=== PATIENT | male | born 1950 | race Caucasian/White ===

== ENCOUNTER 2023-08-14 11:18 | Outpatient (RCR) | payer MEDICARE, OTHER, SELFPAY | END 2023-08-14 23:59 | disposition home or self-care (01) | LOC: CRHB 11:18 | PROVIDERS: ATTENDING PHYSICIAN Internal Medicine Cardiovascular Disease | DX: I25.10 Atherosclerotic heart disease of native coronary artery without angina pectoris (principal); Z95.5 Presence of coronary angioplasty implant and graft | CPT/HCPCS: G0422; G0423 ==

== ENCOUNTER → 2023-08-19 13:00 | Outpatient (REF) | payer MEDICARE, OTHER, SELFPAY | LOC: RAD 13:00 | PROVIDERS: ATTENDING PHYSICIAN Internal Medicine Cardiovascular Disease; FAMILY PHYSICIAN Student in an Organized Health Care Education/Training Program | DX: R09.89 Other specified symptoms and signs involving the circulatory and respiratory systems (principal) | CPT/HCPCS: 93880 ==

== ENCOUNTER 2023-09-11 11:15 | Outpatient (RCR) | payer MEDICARE, OTHER, SELFPAY | END 2023-09-11 23:59 | disposition home or self-care (01) | LOC: CRHB 11:15 | PROVIDERS: ATTENDING PHYSICIAN Internal Medicine Cardiovascular Disease | DX: I25.10 Atherosclerotic heart disease of native coronary artery without angina pectoris (principal); Z95.5 Presence of coronary angioplasty implant and graft | CPT/HCPCS: G0422; G0423 ==

== ENCOUNTER 2023-10-11 11:08 | Outpatient (RCR) | payer MEDICARE, OTHER, SELFPAY ==
[2023-10-02 11:49] LABS: HDL Cholesterol 52 mg/dl; LDL Cholesterol, Calculated 51 mg/dl; Total Cholesterol 119 mg/dl (50-199); Triglyceride 84 mg/dl (10-149); Very Low Density Lipoprotein 16 mg/dl (0-30)
== END 2023-10-11 23:59 | disposition home or self-care (01) ==
LOC: CRHB 11:08
PROVIDERS: ATTENDING PHYSICIAN Internal Medicine Cardiovascular Disease
DX: I25.10 Atherosclerotic heart disease of native coronary artery without angina pectoris (principal); Z95.5 Presence of coronary angioplasty implant and graft
CPT/HCPCS: 36415; 80061; G0422; G0423

== ENCOUNTER 2023-10-16 10:00 | Outpatient (RCR) | payer MEDICARE, OTHER, SELFPAY | END 2023-10-16 23:59 | disposition home or self-care (01) | LOC: CRHB 10:00 | PROVIDERS: ATTENDING PHYSICIAN Internal Medicine Cardiovascular Disease | DX: I25.10 Atherosclerotic heart disease of native coronary artery without angina pectoris (principal); Z95.5 Presence of coronary angioplasty implant and graft | CPT/HCPCS: G0422; G0423 ==

== ENCOUNTER → 2024-05-23 09:12 | Outpatient (REF) | payer MEDICARE, OTHER, SELFPAY ==
[2024-05-23 09:55] LABS: % Basophils 0.6 % (0-2); % Eosinophils 7.9 % (0-6); % Immature Granulocytes 0.2 % (0-0.5); % Lymphocytes 17.8 % (20.5-51.1); % Monocytes 13.9 % (1.7-9.3); % Neutrophils 59.6 % (42.2-75.2); Absolute Eosinophils 0.4 10^3/uL (0-0.7); Absolute Lymphocytes 0.9 10^3/uL (1.2-3.4); Absolute Monocytes 0.7 10^3/uL (0.1-0.6); Absolute Neutrophils 3.1 10^3/uL (1.4-6.5); Mean Corp Hgb Conc. 34.1 g/dL (33.0-37.0); Mean Corpuscular Hgb 31.6 pg (27.0-31.0); Mean Corpuscular Volume 92.6 fL (80.0-94.0); Mean Platelet Volume 9.7 fL (7.4-10.4); Nucleated Red Blood Cells % 0 % (-); Platelet Count 246 10^3/uL (130-400); Red Blood Cell Count 4.43 10^6/uL (4.70-6.10); White Blood Cell Count 5.2 10^3/uL (4.8-10.8)
[2024-05-23 10:17] LABS: ALT (SGPT) 21 U/L (0-50); AST (SGOT) 27 U/L (17-59); Albumin 4.3 g/dl (3.5-5.0); Alkaline Phosphatase 69 U/L (38-126); Blood Urea Nitrogen 30 mg/dl (9-20); Calcium 9.5 mg/dl (8.4-10.2); Carbon Dioxide 32 mmol/L (22-30); Chloride 100 mmol/L (98-107); Glucose 86 mg/dl (70-99); HDL Cholesterol 50 mg/dl; LDL Cholesterol, Calculated 72 mg/dl; Potassium 5.1 mmol/L (3.5-5.1); Sodium 143 mmol/L (135-145); Total Bilirubin 0.4 mg/dl (0.2-1.3); Total Cholesterol 135 mg/dl (50-199); Total Protein 6.9 g/dl (6.3-8.2); Triglyceride 69 mg/dl (10-149); Very Low Density Lipoprotein 13 mg/dl (0-30); eGFR > 60.00
[2024-05-23 10:46] LABS: PSA, Total - Screen 0.56 ng/ml (0.0-4.0); TSH Reflex To Free T4 1.32 uIU/ml (0.47-4.68)
== END ==
LOC: REG 09:12
PROVIDERS: ATTENDING PHYSICIAN Student in an Organized Health Care Education/Training Program
DX: Z00.00 Encounter for general adult medical examination without abnormal findings (principal); I25.10 Atherosclerotic heart disease of native coronary artery without angina pectoris; F41.9 Anxiety disorder, unspecified; I10 Essential (primary) hypertension; Z12.5 Encounter for screening for malignant neoplasm of prostate
CPT/HCPCS: 36415; 80053; 80061; 84443; 85025; G0103

== ENCOUNTER → 2024-07-24 10:51 | Outpatient (REF) | payer MEDICARE, OTHER, SELFPAY ==
[2024-07-24 13:08] LABS: ALT (SGPT) 27 U/L (0-50); AST (SGOT) 31 U/L (17-59); HDL Cholesterol 53 mg/dl; LDL Cholesterol, Calculated 68 mg/dl; Total Cholesterol 135 mg/dl (50-199); Triglyceride 70 mg/dl (10-149); Very Low Density Lipoprotein 14 mg/dl (0-30)
== END ==
LOC: REG 10:51
PROVIDERS: ATTENDING PHYSICIAN Student in an Organized Health Care Education/Training Program
DX: E78.2 Mixed hyperlipidemia (principal)
CPT/HCPCS: 36415; 80061; 84450; 84460

== ENCOUNTER → 2024-09-24 13:15 | Outpatient (REF) | payer MEDICARE, OTHER, SELFPAY ==
[2024-09-24 14:26] LABS: % Basophils 0.2 % (0-2); % Eosinophils 0.4 % (0-6); % Immature Granulocytes 1.2 % (0-0.5); % Lymphocytes 10.1 % (20.5-51.1); % Monocytes 7.9 % (1.7-9.3); % Neutrophils 80.2 % (42.2-75.2); Absolute Immature Granulocytes 0.1 10^3/uL (0-0.05); Absolute Monocytes 0.8 10^3/uL (0.1-0.6); Absolute Neutrophils 7.8 10^3/uL (1.4-6.5); Hematocrit 44.3 % (39.0-52.0); Hemoglobin 14.5 g/dL (13.0-18.0); Mean Corp Hgb Conc. 32.7 g/dL (33.0-37.0); Mean Corpuscular Hgb 31.1 pg (27.0-31.0); Mean Corpuscular Volume 95.1 fL (80.0-94.0); Mean Platelet Volume 9.8 fL (7.4-10.4); Nucleated Red Blood Cells % 0 % (-); Platelet Count 243 10^3/uL (130-400); Red Blood Cell Count 4.66 10^6/uL (4.70-6.10); Red Cell Dist. Width 13.2 % (11.5-14.5); White Blood Cell Count 9.8 10^3/uL (4.8-10.8)
[2024-09-24 14:47] LABS: ALT (SGPT) 24 U/L (0-50); AST (SGOT) 28 U/L (17-59); Albumin 4.7 g/dl (3.5-5.0); Alkaline Phosphatase 81 U/L (38-126); Blood Urea Nitrogen 26 mg/dl (9-20); Calcium 9.9 mg/dl (8.4-10.2); Carbon Dioxide 35 mmol/L (22-30); Chloride 98 mmol/L (98-107); Glucose 85 mg/dl (70-99); Potassium 4.6 mmol/L (3.5-5.1); Sodium 140 mmol/L (135-145); Total Bilirubin 0.8 mg/dl (0.2-1.3); Total Protein 7.1 g/dl (6.3-8.2); eGFR > 60.00
== END ==
LOC: REG 13:15
PROVIDERS: ATTENDING PHYSICIAN Physician Assistant Medical; FAMILY PHYSICIAN Student in an Organized Health Care Education/Training Program
DX: R55 Syncope and collapse (principal)
CPT/HCPCS: 36415; 80053; 85025

== ENCOUNTER → 2025-03-18 09:27 | Outpatient (REF) | payer MEDICARE, OTHER, SELFPAY ==
[2025-03-18 10:39] LABS: HDL Cholesterol 58 mg/dl; LDL Cholesterol, Calculated 58 mg/dl; Very Low Density Lipoprotein 13 mg/dl (0-30)
== END ==
LOC: REG 09:27
PROVIDERS: ATTENDING PHYSICIAN Internal Medicine Cardiovascular Disease; FAMILY PHYSICIAN Student in an Organized Health Care Education/Training Program
DX: I25.10 Atherosclerotic heart disease of native coronary artery without angina pectoris (principal)
CPT/HCPCS: 36415; 80061

== ENCOUNTER → 2025-05-03 12:57 | Outpatient (REF) | payer MEDICARE, OTHER, SELFPAY | LOC: RCS 12:57 | PROVIDERS: ATTENDING PHYSICIAN Internal Medicine Cardiovascular Disease; FAMILY PHYSICIAN Student in an Organized Health Care Education/Training Program | DX: I25.10 Atherosclerotic heart disease of native coronary artery without angina pectoris (principal) | CPT/HCPCS: 93306 ==

== ENCOUNTER → 2025-05-27 10:19 | Outpatient (REF) | payer MEDICARE, OTHER, SELFPAY ==
[2025-05-27 10:50] LABS: Hematocrit 42.7 % (39.0-52.0); Hemoglobin 14.0 g/dL (13.0-18.0); Mean Corp Hgb Conc. 32.8 g/dL (33.0-37.0); Mean Corpuscular Volume 93.4 fL (80.0-94.0); Nucleated Red Blood Cells % 0 % (-); Platelet Count 231 10^3/uL (130-400); Red Cell Dist. Width 12.8 % (11.5-14.5)
[2025-05-27 11:41] LABS: PSA, Total - Screen 0.66 ng/ml (0.0-4.0)
[2025-05-27 11:51] LABS: ALT (SGPT) 31 U/L (0-50); AST (SGOT) 29 U/L (17-59); Albumin 4.4 g/dl (3.5-5.0); Alkaline Phosphatase 71 U/L (38-126); Blood Urea Nitrogen 23 mg/dl (9-20); Calcium 9.3 mg/dl (8.4-10.2); Carbon Dioxide 32 mmol/L (22-30); Chloride 102 mmol/L (98-107); Glucose 84 mg/dl (70-99); Potassium 4.6 mmol/L (3.5-5.1); Sodium 139 mmol/L (135-145); Total Protein 7.2 g/dl (6.3-8.2); eGFR > 60.00
== END ==
LOC: REG 10:19
PROVIDERS: ATTENDING PHYSICIAN Student in an Organized Health Care Education/Training Program
DX: Z12.5 Encounter for screening for malignant neoplasm of prostate (principal); Z00.00 Encounter for general adult medical examination without abnormal findings; I10 Essential (primary) hypertension; R53.83 Other fatigue
CPT/HCPCS: 36415; 80053; 84443; 85025; G0103

== ENCOUNTER → 2025-06-07 12:55 | Outpatient (REF) | payer MEDICARE, OTHER, SELFPAY | LOC: RAD 12:55 | PROVIDERS: ATTENDING PHYSICIAN Student in an Organized Health Care Education/Training Program; REFERRING PHYSICIAN Internal Medicine Cardiovascular Disease | DX: Z87.898 Personal history of other specified conditions (principal); R09.89 Other specified symptoms and signs involving the circulatory and respiratory systems | CPT/HCPCS: 93880 ==